=== PATIENT | female | born 1930 | race African-American/Black ===

== ENCOUNTER 2016-12-30 16:05 | Observation (INO) ==
[2016-12-30] MEDS ORDERED: ALPRAZolam 0.5 MG TABLET PO ONE (16:24)
[2016-12-30 16:59] LABS: Basophils # 0.1 K/mcL (0.0-0.2); Basophils % 0.5 %; Eosinophils # 0.2 K/mcL (0.0-0.6); Eosinophils % 1.3 %; Hematocrit 36.9 % (35.3-44.9); Hemoglobin 12.4 g/dL (11.5-15.4); Immature Granulocytes % 0.5 % (0-4); Lymphocytes # 1.5 K/mcL (0.6-4.6); Lymphocytes % 11.4 %; Mean Corpuscular HGB Conc 33.6 g/dL (31.6-35.5); Mean Corpuscular Hemoglobin 32.3 pg (28.0-33.3); Mean Corpuscular Volume 96.1 fL (83.0-100.0); Mean Platelet Volume 11.2 fL (9.4-12.4); Monocytes % 7.5 %; Neutrophils # 10.2 K/mcL (1.6-8.9); Platelet Count 186 K/mcL (140-400); Red Blood Count 3.84 M/mcL (3.82-4.97); Red Cell Distribution Width 12.3 % (11.5-14.5); Segmented Neutrophils % 78.8 %
[2016-12-30 17:11] LABS: BUN/Creatinine Ratio 19 (6-26); Blood Urea Nitrogen 24 mg/dL (7-20); Carbon Dioxide 28 mEq/L (19-29); Chloride 103 mEq/L (98-109); Ethanol < 10 mg/dL (0-10); Glucose 133 mg/dL (70-99); Osmolality,Calculated 298 (280-300); Potassium 3.7 mEq/L (3.5-4.5); Sodium 141 mEq/L (136-145); eGFR For African Americans 48 (> 60); eGFR For Non-African Americans 40 (> 60)
[2016-12-30 17:17] LABS: Bilirubin,Urine Negative (Negative); Blood,Urine Negative (Negative); Clarity,Urine Clear (Clear); Color,Urine Yellow (Yellow); Glucose,Urine (UA) Normal (Normal); Ketones,Urine Negative (Negative); Leukocyte Esterase,Urine Trace (Negative); Nitrite,Urine Negative (Negative); PH,Urine 6.5 pH Units (5.0-8.0); Protein,Urine Negative (Neg-Trace); Specific Gravity,Urine 1.013 (1.010-1.025); Urobilinogen,Urine Normal (Normal)
[2016-12-30 17:18] LABS: Prothrombin Time 10.8 Seconds (9.4-12.1)
[2016-12-30 17:21] LABS: Activated Partial Thrombo Time 34.3 Seconds (26.0-36.0)
[2016-12-30 17:24] LABS: Amphetamine Screen,Urine Negative ng/mL (Cutoff=1000); Barbiturate Screen,Urine Negative ng/mL (Cutoff=200); Benzodiazepines Screen,Urine Positive ng/mL (Cutoff=200); Cannabinoid Screen,Urine Negative ng/mL (Cutoff = 50); Cocaine Screen,Urine Negative ng/mL (Cutoff= 300); Opiate Screen,Urine Negative ng/mL (Cutoff=300); Phencyclidine Screen,Urine Negative ng/mL (Cutoff=25)
[2016-12-30 17:36] LABS: Bacteria,Urine None Seen per hpf (None-Few); Hyaline Casts,Urine None Seen per lpf (None-Few); RBC,Urine 0-3 per hpf (0-3); Squamous Epithelial Cell,Urine None Seen per lpf (None-Few); WBC,Urine 0-3 per hpf (0-3)
--- NOTE | 2016-12-30 20:06 | Emergency Department Note ---
Disposition Clinical Impression: CVA (cerebral vascular accident) Qualifiers: CVA mechanism: unspecified Qualified Code(s): I63.9 - Cerebral infarction, unspecified Disposition: Admitted As Inpatient Condition: Critical General Adult HPI - General Chief complaint: ED Neuro Symptoms/Deficit Stated complaint: chest pain Time Seen by Provider: 12/30/16 16:23 Source: family Limitations: altered mental status, physical limitation, age Nursing Notes Reviewed: Yes Vital Signs Reviewed: Yes - History of Present Illness HPI Narrative: 86-year-old female who presents with concern for dysarthria. She has been feeling somewhat off. 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 She admits that she did take Xanax today however was not feeling right. She cannot articulate exactly what was not right however she did present with dysarthria. INH score is 1 on arrival. Her onset of symptoms was outside the window for TPA administration. She was on our 10 on arrival. She had no weakness of her upper extremities or lower extremity. She had isolated dysarthria. She admits to no dysphagia. She does admit to some chest pain. She cannot articulate the exact nature of her chest pain. Pain Scale: 0 - Related Data Home Medications Medication Instructions Recorded Confirmed Aspirin 81 mg PO DAILY 05/22/15 03/06/16 Alprazolam [Xanax 0.5 MG Tablet] 0.5 mg PO TID 06/06/15 03/06/16 Calcium Carbonate/Vitamin D3 1 each PO BID 06/06/15 03/06/16 [Calcium 500 + D Tablet] Citalopram Hydrobromide 10 mg PO HS 06/06/15 03/06/16 [Citalopram HBr] Hydroxyzine HCl 25 mg PO BID 06/06/15 03/06/16 Multivit-Min/FA/Lycopen/Lutein 1 each PO HS 06/06/15 03/06/16 [Centrum Silver Tablet] Potassium Chloride [Klor-Con 10 meq PO BID 06/06/15 03/06/16 Sprinkle] Hydrochlorothiazide 25 mg PO DAILY 03/06/16 03/06/16 Losartan [Cozaar] 25 mg PO BID 03/06/16 03/06/16 Metoprolol [Lopressor] 50 mg PO BID 03/06/16 03/06/16 Lantus 12/30/16 Allergies Allergy/AdvReac Type Severity Reaction Status Date / Time Iodinated Contrast Media - Allergy Hives Verified 05/22/15 16:56 Oral and [Iodinated Contrast Media - IV Dye] All systems ED: reviewed and negative except as stated. Past Medical History - Past Medical History Medical history: Reports: non-contributory Surgical history: Reports: breast surgery, knee replacement Psychiatric history: Reports: anxiety VIRTUAL RECRUITER history: Reports: no VIRTUAL RECRUITER history - Social History Smoking Status: Never smoker Smokeless Tobacco Status: No Alcohol use: Reports: none Drug use: Reports: none Physical Exam Pupils are equal, round, reactive to light Tongue movement is normal She is able to raise her eyebrows symmetrically, puff out her cheeks symmetrically Mucous membranes are moist uvula is midline Trachea is midline Shoulder shrug is symmetrical Cardiovascular exam shows regular rate and rhythm Pulmonary exams without rales, rhonchi, wheezing Abdomen is soft and nontender Strength is May 10 in all extremities 5/5, sensation normal, reflexes checked and normal, she does have dysarthria only on examination Skin is pink warm and dry Affect is normal slightly anxious - General Limitations: altered mental status, physical limitation, age General appearance: anxious, lethargic Course Vital Signs Temperature 98.2 F 12/30/16 16:12 Pulse Rate 69 12/30/16 16:12 Respiratory Rate 16 12/30/16 16:12 Blood Pressure 170/76 12/30/16 16:12 O2 Sat by Pulse Oximetry 98 12/30/16 16:12 Temperature 98.2 F 12/30/16 16:12 Pulse Rate 75 12/30/16 18:00 Respiratory Rate 16 12/30/16 18:00 Blood Pressure 156/77 12/30/16 18:00 O2 Sat by Pulse Oximetry 99 12/30/16 18:00 Oxygen Delivery Oxygen Delivery Room Air Medical Decision Making - MDM Narrative Medical decision making narrative: 86-year-old female presents with strokelike symptoms. She did have dysarthria but she was outside the window for TPA. Noncontrast CT of the brain was obtained as she does have a decreased globular filtration rate and I do not want exposure to contrast load at this time. I would admit for MRI, CVA rule out. I do suspect there is a component of Xanax withdrawal as she does provide a history of having reduction in her Xanax dosing there was substantial S and she was on previously. She is very concerned about this. I did provide her a dose of her home Xanax and she did have some improvement of dysarthria. Given her age, comorbidities and be hard to exclude CVA and not she will be admitted for CVA rule out. bus monitor checked and normal. Urinalysis shows no evidence of infection. She is admitted in stable condition. - Medical Records Medical records reviewed: Yes I reviewed the patient's medical records. - Lab Data Lab results reviewed: Yes I reviewed the patient's lab results. Result diagrams: 12/30/16 16:51 12/30/16 16:51 Lab Results 12/30/16 12/30/16 12/30/16 Range/Units 16:17 16:51 16:51 WBC 13.0 H (4.3-11.1) K/mcL RBC 3.84 (3.82-4.97) M/mcL Hgb 12.4 (11.5-15.4) g/dL Hct 36.9 (35.3-44.9) % MCV 96.1 (83.0-100.0) fL MCH 32.3 (28.0-33.3) pg MCHC 33.6 (31.6-35.5) g/dL RDW 12.3 (11.5-14.5) % Plt Count 186 (140-400) K/mcL MPV 11.2 (9.4-12.4) fL Immature Gran % 0.5 (0-4) % Seg Neutrophils % 78.8 % Lymphocytes % 11.4 % Monocytes % 7.5 % Eosinophils % 1.3 % Basophils % 0.5 % Neutrophils # 10.2 H (1.6-8.9) K/mcL Lymphocytes # 1.5 (0.6-4.6) K/mcL Monocytes # 1.0 (0.0-1.3) K/mcL Eosinophils # 0.2 (0.0-0.6) K/mcL Basophils # 0.1 (0.0-0.2) K/mcL PT (9.4-12.1) Seconds INR APTT (26.0-36.0) Seconds Sodium 141 (136-145) mEq/L Potassium 3.7 (3.5-4.5) mEq/L Chloride 103 (98-109) mEq/L Carbon Dioxide 28 (19-29) mEq/L BUN 24 H (7-20) mg/dL Creatinine 1.28 H (0.57-1.11) mg/dL Est GFR ( Amer) 48 L (> 60) Est GFR (Non-Af Amer) 40 L (> 60) BUN/Creatinine Ratio 19 (6-26) Glucose 133 H (70-99) mg/dL POC Glucose 117 H (58-89) Calculated Osmolality 298 (280-300) Calcium 10.0 (8.6-10.8) mg/dL Troponin I (0-0.03) ng/mL Urine Color (Yellow) Urine Clarity (Clear) Urine pH (5.0-8.0) pH Units Ur Specific [place] (1.010-1.025) Urine Protein (Neg-Trace) mg/dL Urine Glucose (UA) (Normal) mg/dL Urine Ketones (Negative) mg/dL Urine Blood (Negative) Urine Nitrite (Negative) Urine Bilirubin (Negative) Urine Urobilinogen (Normal) mg/dL Ur Leukocyte Esterase (Negative) Urine Microscopic RBC (0-3) per hpf Urine Microscopic WBC (0-3) per hpf Ur Squamous Epith Cells (None-Few) per lpf Urine Bacteria (None-Few) per hpf Hyaline Casts (None-Few) per lpf Ur Culture Indicated? (NO) Urine Opiates Screen (Ibhtpa=511) ng/mL Ur Barbiturates Screen (Cjddts=333) ng/mL Ur Phencyclidine Scrn (Cutoff=25) ng/mL Ur Amphetamines Screen (Xsecru=1116) ng/mL U Benzodiazepines Scrn (Rydbwt=205) ng/mL Urine Cocaine Screen (Cutoff= 300) ng/mL U Marijuana (THC) Screen (Cutoff = 50) ng/mL Ethyl Alcohol < 10 (0-10) mg/dL Specimen Rejected 12/30/16 12/30/16 12/30/16 Range/Units 16:51 16:51 17:04 WBC (4.3-11.1) K/mcL RBC (3.82-4.97) M/mcL Hgb (11.5-15.4) g/dL Hct (35.3-44.9) % MCV (83.0-100.0) fL MCH (28.0-33.3) pg MCHC (31.6-35.5) g/dL RDW (11.5-14.5) % Plt Count (140-400) K/mcL MPV (9.4-12.4) fL Immature Gran % (0-4) % Seg Neutrophils % % Lymphocytes % % Monocytes % % Eosinophils % % Basophils % % Neutrophils # (1.6-8.9) K/mcL Lymphocytes # (0.6-4.6) K/mcL Monocytes # (0.0-1.3) K/mcL Eosinophils # (0.0-0.6) K/mcL Basophils # (0.0-0.2) K/mcL PT (9.4-12.1) Seconds INR APTT (26.0-36.0) Seconds Sodium (136-145) mEq/L Potassium (3.5-4.5) mEq/L Chloride (98-109) mEq/L Carbon Dioxide (19-29) mEq/L BUN (7-20) mg/dL Creatinine (0.57-1.11) mg/dL Est GFR ( Amer) (> 60) Est GFR (Non-Af Amer) (> 60) BUN/Creatinine Ratio (6-26) Glucose (70-99) mg/dL POC Glucose (58-89) Calculated Osmolality (280-300) Calcium (8.6-10.8) mg/dL Troponin I 0.00 (0-0.03) ng/mL Urine Color Yellow (Yellow) Urine Clarity Clear (Clear) Urine pH 6.5 (5.0-8.0) pH Units Ur Specific [place] 1.013 (1.010-1.025) Urine Protein Negative (Neg-Trace) mg/dL Urine Glucose (UA) Normal (Normal) mg/dL Urine Ketones Negative (Negative) mg/dL Urine Blood Negative (Negative) Urine Nitrite Negative (Negative) Urine Bilirubin Negative (Negative) Urine Urobilinogen Normal (Normal) mg/dL Ur Leukocyte Esterase Trace H (Negative) Urine Microscopic RBC 0-3 (0-3) per hpf Urine Microscopic WBC 0-3 (0-3) per hpf Ur Squamous Epith Cells None Seen (None-Few) per lpf Urine Bacteria None Seen (None-Few) per hpf Hyaline Casts None Seen (None-Few) per lpf Ur Culture Indicated? YES A (NO) Urine Opiates Screen (Yufyhw=356) ng/mL Ur Barbiturates Screen (Aaplwu=118) ng/mL Ur Phencyclidine Scrn (Cutoff=25) ng/mL Ur Amphetamines Screen (Huxohd=3750) ng/mL U Benzodiazepines Scrn (Tvyylr=377) ng/mL Urine Cocaine Screen (Cutoff= 300) ng/mL U Marijuana (THC) Screen (Cutoff = 50) ng/mL Ethyl Alcohol (0-10) mg/dL Specimen Rejected Volume 12/30/16 12/30/16 Range/Units 17:04 17:08 WBC (4.3-11.1) K/mcL RBC (3.82-4.97) M/mcL Hgb (11.5-15.4) g/dL Hct (35.3-44.9) % MCV (83.0-100.0) fL MCH (28.0-33.3) pg MCHC (31.6-35.5) g/dL RDW (11.5-14.5) % Plt Count (140-400) K/mcL MPV (9.4-12.4) fL Immature Gran % (0-4) % Seg Neutrophils % % Lymphocytes % % Monocytes % % Eosinophils % % Basophils % % Neutrophils # (1.6-8.9) K/mcL Lymphocytes # (0.6-4.6) K/mcL Monocytes # (0.0-1.3) K/mcL Eosinophils # (0.0-0.6) K/mcL Basophils # (0.0-0.2) K/mcL PT 10.8 (9.4-12.1) Seconds INR 1.0 APTT 34.3 (26.0-36.0) Seconds Sodium (136-145) mEq/L Potassium (3.5-4.5) mEq/L Chloride (98-109) mEq/L Carbon Dioxide (19-29) mEq/L BUN (7-20) mg/dL Creatinine (0.57-1.11) mg/dL Est GFR ( Amer) (> 60) Est GFR (Non-Af Amer) (> 60) BUN/Creatinine Ratio (6-26) Glucose (70-99) mg/dL POC Glucose (58-89) Calculated Osmolality (280-300) Calcium (8.6-10.8) mg/dL Troponin I (0-0.03) ng/mL Urine Color (Yellow) Urine Clarity (Clear) Urine pH (5.0-8.0) pH Units Ur Specific [place] (1.010-1.025) Urine Protein (Neg-Trace) mg/dL Urine Glucose (UA) (Normal) mg/dL Urine Ketones (Negative) mg/dL Urine Blood (Negative) Urine Nitrite (Negative) Urine Bilirubin (Negative) Urine Urobilinogen (Normal) mg/dL Ur Leukocyte Esterase (Negative) Urine Microscopic RBC (0-3) per hpf Urine Microscopic WBC (0-3) per hpf Ur Squamous Epith Cells (None-Few) per lpf Urine Bacteria (None-Few) per hpf Hyaline Casts (None-Few) per lpf Ur Culture Indicated? (NO) Urine Opiates Screen Negative (Gagexi=974) ng/mL Ur Barbiturates Screen Negative (Rptaoz=918) ng/mL Ur Phencyclidine Scrn Negative (Cutoff=25) ng/mL Ur Amphetamines Screen Negative (Zfzqzp=9406) ng/mL U Benzodiazepines Scrn Positive H (Cingkv=700) ng/mL Urine Cocaine Screen Negative (Cutoff= 300) ng/mL U Marijuana (THC) Screen Negative (Cutoff = 50) ng/mL Ethyl Alcohol (0-10) mg/dL Specimen Rejected - Radiology Data Radiology results reviewed: Yes I reviewed the patient's radiology results. - EKG Data EKG #1 EKG results narrative: EKG shows normal sinus rhythm, normal axis, normal intervals, nonspecific ST segment changes nonspecific ECG Critical Care Time Total Critical Care Time: 31 Attestation: Assessment the total of 31 minutes resuscitating this acutely ill female patient suffering from possible cerebrovascular accident. Resuscitation time was excluding billable procedures. She was admitted and remains in critical condition with a high potential for life-threatening deterioration
[2016-12-30] MEDS ORDERED: Naloxone 0.4 MG/ML INJ IVP PRN (21:55)
--- NOTE | 2016-12-30 21:55 | Internal Med History&Physical ---
Date of Encounter: 12/30/16 Time of Encounter: 21:30 Assessment and Plan (1) Slurred speech Current visit: Yes Status: Acute pt reports some slurring of speech for about a week and is reportedly happens when she talks for some time. No other associated neurological signs. Will request MRI brain to exclude CVA. Other differential is Myasthenia. Will consult speech therapy and consider neurology consultation. (2) Dizziness Current visit: Yes Status: Acute Suspect orthostatic hypotension. Will check orthostatic vitals and treat her with intravenous fluids. (3) Generalized weakness Current visit: Yes Status: Acute Possibly secondary to volume depletion/suspected urinary tract infection (4) UTI (urinary tract infection) Current visit: Yes Status: Acute Empirically start on ceftriaxone. Urine culture is pending. 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 Monitor BP Qualifiers: Hypertension type: essential hypertension Qualified Code(s): I10 - Essential (primary) hypertension (7) Anxiety Current visit: Yes Status: Chronic Continue Xanax at home dose (8) CKD (chronic kidney disease) stage 3, GFR 30-59 ml/min Current visit: Yes Status: Chronic Monitor renal function Internal Medicine - H&P: HPI Chief complaint: Generalized weakness Admitted From: Emergency Dept Plans for Post Hospital Care: Transfer [facility] History of present illness: Ms. Phillips is a 86 year old female with Past medical history significant for peripheral vascular disease, ulcerative colitis, GERD, diabetes mellitus, hypertension, pericardial effusion, diverticulosis, hyperlipidemia and anxiety. She is a resident of assisted living and uses quad cane to assist in walking. She presents to the emergency department with generalized weakness, dizziness and lightheadedness when she stands up. No history of falls or loss of consciousness. She denies headache or blurred vision. She reportedly had some slurred speech, which the patient indicates is going on for about a week and happens when she is talking for some time. She denies difficulty swallowing and cough with swallowing. She denies localized weakness of the extremities. She denies chest pain, shortness of breath, cough, expectoration, fever, chills today. She reports some generalized abdominal pain, but more in the suprapubic area. She denies significant dysuria or hematuria. No new bowel changes. She was evaluated in the emergency department and there was concern for dyarthria she is admitted to the hospitalist service for further w/u and management. Of note: she indicates that she was on Xanax for many years but been off her Xanax for a few weeks but restarted on Xanax at a lower dose earlier this month. Past Med Surg Social Fam HX - Past Medical History Medical history: non-contributory Psychiatric history: anxiety - Past Surgical History Surgical History: breast surgery, knee replacement - Social History Smoking Status: Never smoker Smokeless Tobacco Status: No Alcohol use: none Drug use: none - Family History Mother Living Status: Father Daughter Living Status: Internal Medicine - H&P: Meds Aspirin 81 mg PO DAILY 05/22/15 [History] Alprazolam [Xanax 0.5 MG Tablet] 0.5 mg PO QID 06/06/15 [History] Calcium Carbonate/Vitamin D3 [Calcium 500 + D Tablet] 1 each PO BID 06/06/15 [ History] Citalopram Hydrobromide [Citalopram HBr] 20 mg PO HS 06/06/15 [History] Hydroxyzine HCl 25 mg PO BID PRN 06/06/15 [History] Multivit-Min/FA/Lycopen/Lutein [Centrum Silver Tablet] 1 each PO DAILY 06/06/15 [History] Potassium Chloride [Klor-Con Sprinkle] 5 meq PO BID 06/06/15 [History] Hydrochlorothiazide 25 mg PO DAILY 03/06/16 [History] Losartan [Cozaar] 50 mg PO BID 03/06/16 [History] Metoprolol [Lopressor] 50 mg PO BID 03/06/16 [History] Insulin Glargine,Hum.rec.anlog [Lantus Solostar] 8 unit SQ DAILY 12/30/16 [ History] Allergies Iodinated Contrast Media - Oral and [Iodinated Contrast Media - IV Dye] Allergy (Verified 05/22/15 16:56) Hives All Systems PM: A 10-system review of systems was performed and is negative for pertinent findings except as documented above in the HPI. - Constitutional Vitals: Temp Pulse Resp BP Pulse Ox 97.9 F 73 16 170/88 98 12/30/16 21:18 12/30/16 21:18 12/30/16 21:18 12/30/16 21:18 12/30/16 21:18 Exam: General: Not in acute distress at the time of my evaluation HEENT: Oral mucosa is moist. No conjunctival palor or scleral icterus Neck: No obvious neck swellings Lungs: Clear to auscultation Cardiac: Regular rate and rhythm. No significant murmurs Abdomen: suprapubic tenderness. Bowel sounds present Genitourinary: No capellan catheter Neurological: Alert and oriented. No gross localizing deficits. No gross cranial nerve deficits noted Psych: Not aggressive or agitated Extremities: no significant leg edema Skin: No generalized rash Internal Med - H&P Results - Labs CBC & Chem 7: 12/30/16 16:51 12/30/16 16:51 - EKG Data -: EKG Interpreted by Myself EKG shows normal: sinus rhythm Rate: normal - Impressions ITS Impressions Head CT 12/30/16 16:24 IMPRESSION: No acute intracranial abnormality. D/ / Scooter Rivera MD / Scooter Rivera MD Interpreting Provider: Scooter Rivera MD
[2016-12-30] MEDS ORDERED: hydrOXYzine pamoate 25 MG CAPSULE PO PRN (22:54)
[2016-12-30] MEDS ORDERED: D5% in Water 1,000 ML IVC PRN (23:27)
[2016-12-30] MEDS ORDERED: *HR* Dextrose 50 % in Water (Syg) 50 ML SYRINGE IVP PRN (23:27)
[2016-12-30] MEDS ORDERED: Dextrose Gel 15 GM PO PRN ×2 (23:27)
[2016-12-31] MEDS: 0.9 % Sodium Chloride 1,000 ML IVC SCH ×2 (00:18→12:34)
[2016-12-31] MEDS: ALPRAZolam 0.5 MG TABLET PO SCH ×5 (00:19→21:55)
[2016-12-31 04:31] LABS: Basophils % 0.4 %; Eosinophils # 0.2 K/mcL (0.0-0.6); Eosinophils % 2.1 %; Hematocrit 33.9 % (35.3-44.9); Immature Granulocytes % 0.4 % (0-4); Lymphocytes # 1.7 K/mcL (0.6-4.6); Lymphocytes % 18.8 %; Mean Corpuscular HGB Conc 32.4 g/dL (31.6-35.5); Mean Corpuscular Hemoglobin 31.4 pg (28.0-33.3); Mean Corpuscular Volume 96.9 fL (83.0-100.0); Mean Platelet Volume 11.3 fL (9.4-12.4); Monocytes # 0.8 K/mcL (0.0-1.3); Monocytes % 8.9 %; Neutrophils # 6.3 K/mcL (1.6-8.9); Platelet Count 158 K/mcL (140-400); Red Cell Distribution Width 12.5 % (11.5-14.5); Segmented Neutrophils % 69.4 %
[2016-12-31 04:44] LABS: Potassium 3.5 mEq/L (3.5-4.5)
[2016-12-31 04:53] LABS: Chol/HDL Ratio 3.6 (0-4.9); Magnesium 1.6 mg/dL (1.6-2.6)
[2016-12-31] MEDS: *HR* Heparin 5,000 UNIT/ML VIAL SQ SCH ×3 (06:16→21:56)
[2016-12-31] MEDS: Insulin LISPRO 300 UNITS/3 ML VIAL SQ SCH ×3 (07:56→16:50)
[2016-12-31] MEDS: Multivit/Ca/Min/Fe/FA 1 TAB TABLET PO SCH (08:01)
[2016-12-31] MEDS: Aspirin 81 MG TAB.CHEW PO SCH (08:01)
[2016-12-31] MEDS: Lactobacillus 1 EACH CAP.SPRINK PO SCH ×2 (08:01→21:54)
[2016-12-31] MEDS: Calcium 500-Vit D3 PO SCH ×2 (08:02→21:56)
--- NOTE | 2016-12-31 11:17 | Internal Med Progress Note ---
Date of Encounter: 12/31/16 Time of Encounter: 10:15 - Assessment and plan (1) Dysphagia Current Visit: Yes Status: Acute Assessment and plan: Patient is stating for the past several months that her food is been getting stuck in the middle of her chest. She denies any vomiting. She denies coughing while eating. In review of her chart, she had an EGD on 03/06/16 revealed gastritis and a small hiatal hernia with no evidence of esophageal strictures. She is still able to tolerate a regular diet, recommend follow-up outpatient for an outpatient EGD as indicated. No inpatient consultation warranted at this time. Speech therapy has also been brought on board. (2) Slurred speech Current Visit: Yes Status: Resolved Assessment and plan: Speech fluid. Brain MRI pending. (3) Dizziness Current Visit: Yes Status: Acute Assessment and plan: Still dizzy with ambulation, orthostatic vital signs unremarkable. Awaiting brain MRI. No focal neurological weakness is present on examination. (4) Generalized weakness Current Visit: Yes Status: Acute Assessment and plan: No focal neurological weakness is present on examination. We will bring OT and PT on board. She is currently independent living at the [facility]. (5) Diabetes Current Visit: Yes Status: Chronic Assessment and plan: Controlled. A1c 5.9% earlier this month. Continue sliding scale while admitted. (6) HTN (hypertension) Current Visit: Yes Status: Chronic Assessment and plan: Slightly hypertensive upon arrival, trending down towards normotension. Takes Lopressor 50 mg twice a day, losartan 50 mg twice a day, HCTZ 25 mg daily. HCTZ held and continued at this time as her renal functioning is consistent with her baseline, we will continue to trend and adjust medications as indicated. Qualifiers: Hypertension type: essential hypertension Qualified Code(s): I10 - Essential (primary) hypertension (7) COPD (chronic obstructive pulmonary disease) Current Visit: No Status: Chronic Assessment and plan: No acute exacerbation. Patient denies shortness of breath above her norm. (8) UTI (urinary tract infection) Current Visit: Yes Status: Acute Assessment and plan: suspected. Continue ceftriaxone, culture pending Qualifiers: Urinary tract infection type: site unspecified Hematuria presence: without hematuria Qualified Code(s): N39.0 - Urinary tract infection, site not specified (9) CKD (chronic kidney disease) stage 3, GFR 30-59 ml/min Current Visit: Yes Status: Chronic Assessment and plan: Stable and consistent with her baseline, we will continue to trend (10) Anxiety Current Visit: Yes Status: Chronic Assessment and plan: Patient is staining her regular psychiatrist was unable to see her due to leaving his practice and states that the new prescriber would not refill her Xanax. She does have her Xanax refilled at this time and states her anxiety is better controlled now. - Subjective Interval history: Patient seen and examined. On examination, patient is sitting upright in bed. Patient complains of left knee pain and also states that whenever she eats, food gets stuck. She denies any vomiting. She states she was able to ambulate to the bathroom but still felt dizzy and lightheaded. She states she is unable to eat a regular diet. - Constitutional Vitals: Temp Pulse Resp BP Pulse Ox 97.8 F 82 15 158/82 95 12/31/16 07:57 12/31/16 07:57 12/31/16 07:57 12/31/16 07:57 12/31/16 08:00 General appearance: Present: A&O X 3, pleasant, no acute distress, answers questions appropriately - Head Head exam: Present: atraumatic, normocephalic - Eye Eye exam: Present: PERRL, conjuntiva pink, sclera anicteric Pupils: Present: PERRL - Neck Neck exam general surgery: Present: supple, trachea midline. Absent: lymphadenopathy - Respiratory Respiratory exam: Present: CTAB. Absent: accessory muscle use, rales, respiratory distress, rhonchi, wheezes - Cardiovascular Cardiovascular exam: Present: RRR, +S1, +S2. Absent: diastolic murmur, gallop, rubs, systolic murmur - GI/Abdominal GI/Abdominal exam: Present: normal bowel sounds, soft, no peritoneal signs. Absent: distended, tenderness - Extremities Exam Extremities exam: Present: warm, radial pulses palpable and symetrical. Absent : calf tenderness, cyanotic, pedal edema - Neurological Exam Neurological exam: Present: alert, CN II-XII intact, oriented X3, no focal deficits, strengths equal and symetr throughout. Absent: pronater drift, facial droop, speech deficit - Skin Skin exam: Present: dry, intact, pallor, warm Internal Medicine: Result - Labs CBC & Chem 7: 12/31/16 03:50 12/31/16 03:50 Labs: Short CBC 12/31/16 Range/Units 03:50 WBC 9.1 (4.3-11.1) K/mcL Hgb 11.0 L (11.5-15.4) g/dL Hct 33.9 L (35.3-44.9) % Plt Count 158 (140-400) K/mcL Neutrophils # 6.3 (1.6-8.9) K/mcL BMP 12/31/16 03:50 Sodium 139 Potassium 3.5 Chloride 102 Carbon Dioxide 30 H BUN 23 H Creatinine 1.20 H Glucose 149 H Calcium 9.0 - ABG Interpretation ABG results: PT/INR, D-dimer PT 10.8 Seconds (9.4-12.1) 12/30/16 17:08 - Impressions Impressions Chest X-Ray 12/31/16 04:00 IMPRESSION: 1. No active pulmonary disease. 2. Stable cardiomegaly without overt failure. D/ / Bo Weinstein MD / Bo Weinstein MD Interpreting Provider: Bo Weinstein MD Consult Discharge Plan - Plan Referrals: Luis Vargas DO [Primary Care Provider] - 01/07/17 10:00 am
[2016-12-31] MEDS: hydroCHLOROthiazide 25 MG TABLET PO SCH (12:27)
[2016-12-31] MEDS ORDERED: Insulin LISPRO 300 UNITS/3 ML VIAL SQ SCH (21:00)
[2017-01-01] MEDS: 0.9 % Sodium Chloride 1,000 ML IVC SCH (04:09)
[2017-01-01] MEDS: *HR* Heparin 5,000 UNIT/ML VIAL SQ SCH ×2 (04:42→14:24)
[2017-01-01 04:53] LABS: Basophils # 0.1 K/mcL (0.0-0.2); Basophils % 0.6 %; Eosinophils # 0.2 K/mcL (0.0-0.6); Eosinophils % 2.7 %; Hematocrit 35.3 % (35.3-44.9); Hemoglobin 11.5 g/dL (11.5-15.4); Immature Granulocytes % 0.4 % (0-4); Lymphocytes # 1.8 K/mcL (0.6-4.6); Lymphocytes % 22.6 %; Mean Corpuscular HGB Conc 32.6 g/dL (31.6-35.5); Mean Corpuscular Volume 98.3 fL (83.0-100.0); Mean Platelet Volume 11.9 fL (9.4-12.4); Monocytes # 0.8 K/mcL (0.0-1.3); Monocytes % 9.8 %; Neutrophils # 4.9 K/mcL (1.6-8.9); Platelet Count 149 K/mcL (140-400); Red Blood Count 3.59 M/mcL (3.82-4.97); Red Cell Distribution Width 12.4 % (11.5-14.5); Segmented Neutrophils % 63.9 %
[2017-01-01 05:29] LABS: BUN/Creatinine Ratio 21 (6-26); Blood Urea Nitrogen 19 mg/dL (7-20); Carbon Dioxide 28 mEq/L (19-29); Chloride 105 mEq/L (98-109); Glucose 126 mg/dL (70-99); Osmolality,Calculated 296 (280-300); Potassium 3.6 mEq/L (3.5-4.5); Sodium 141 mEq/L (136-145); eGFR For African Americans > 60 (> 60); eGFR For Non-African Americans 58 (> 60)
[2017-01-01] MEDS: Insulin LISPRO 300 UNITS/3 ML VIAL SQ SCH ×2 (08:09→14:15)
--- NOTE | 2017-01-01 08:17 | Electrocardiograph Report ---
[place] [id number] Test Date: 2016-12-30 Pat Name: Layne Phillips Department: 103 Room: 3B21 Gender: F Shaft Tender: [facility] : 1930 Requested By: Bianca Gallegos Order Number: [id number] Reading MD: Baldomero Andino MD Measurements Intervals [place] Rate: 66 P: 56 [place]: 135 QRS: -4 QRSD: 106 T: 18 QT: 398 QTc: 411 Interpretive Statements SINUS RHYTHM Electronically Signed On 01-01-2017 8:16:08 EDT by Baldomero Andino MD
[2017-01-01] MEDS: Lactobacillus 1 EACH CAP.SPRINK PO SCH (08:45)
[2017-01-01] MEDS: ALPRAZolam 0.5 MG TABLET PO SCH ×2 (08:45→14:24)
[2017-01-01] MEDS: Calcium 500-Vit D3 PO SCH (08:46)
[2017-01-01] MEDS: Aspirin 81 MG TAB.CHEW PO SCH (08:46)
[2017-01-01] MEDS: hydroCHLOROthiazide 25 MG TABLET PO SCH (08:46)
[2017-01-01] MEDS: Multivit/Ca/Min/Fe/FA 1 TAB TABLET PO SCH (08:46)
[2017-01-01 11:29] VITALS: BP 160/80
--- NOTE | 2017-01-01 15:00 | Discharge Summary ---
Date of Encounter: 01/01/17 Time of Encounter: 09:40 - Discharge Diagnosis (1) Generalized weakness Priority: Primary Status: Resolved Comments: Patient has been ambulating in room today. She denies feeling weak or dizzy today. Upper and lower motor extremity strength moderate and equal. Patient has steady gait with assistance from her walker. She had physical therapy and occupational therapy assess her in the hospital, she says she does not want occupational therapy at home due to cost. She lives in independent living on [facility]. she says she feels like she is back to normal and can go home and care for herself without problems. (2) Slurred speech Priority: Secondary Status: Resolved Comments: Patient states that her speech has returned to normal. Speech is clear and easy to understand. Her MRI was negative for acute infarct. Her head CT was negative for any intracranial abnormality. Patient will follow up with primary care physician for recheck. (3) Dizziness Priority: Secondary Status: Acute Comments: Patient denies dizziness today. She has been up ambulating around her room without difficulty. She will continue home medications. Her head CT and MRI were both negative for intracranial abnormalities or infarct. She appears to be euvolemic mucous membranes moist, she has no peripheral edema lungs are clear. (4) HTN (hypertension) Priority: Secondary Status: Chronic Comments: Vital signs remained stable. Blood pressure within normal range for patient's age. This is chronic. She will continue home medications. Qualifiers: Hypertension type: essential hypertension Qualified Code(s): I10 - Essential (primary) hypertension (5) UTI (urinary tract infection) Priority: Secondary Status: Ruled-out Comments: Patient did receive IV Rocephin 1000 mg daily for suspected urinary tract infection, however, urine culture was negative for pathogens and there were no bacteria on the urinalysis. Patient states that she will follow-up with her primary care physician for repeat UA Qualifiers: Urinary tract infection type: site unspecified Hematuria presence: without hematuria Qualified Code(s): N39.0 - Urinary tract infection, site not specified (6) CKD (chronic kidney disease) stage 3, GFR 30-59 ml/min Priority: Secondary Status: Chronic Comments: Chronic. Renal function has returned within normal limits. She will continue to follow with her primary care physician. (7) Anxiety Priority: Secondary Status: Chronic Comments: Patient reports multiple changes to her Xanax dose over the last few weeks. This alone has caused her some anxiety and may somewhat have contributed to her dizziness. Patient denies anxiety and states that her dose is fine at this time and does not wish for her to be changed again. She will continue Xanax at home as she did previously. - Discharge Medications Home Medications: Aspirin 81 mg PO DAILY 05/22/15 [History] Alprazolam [Xanax 0.5 MG Tablet] 0.5 mg PO QID 06/06/15 [History] Calcium Carbonate/Vitamin D3 [Calcium 500-Vit D3 400 Tablet] 1 each PO BID 06/06 [History] Citalopram Hydrobromide [Citalopram HBr] 20 mg PO HS 06/06/15 [History] Hydroxyzine HCl 25 mg PO TID PRN 06/06/15 [History] Multivit-Min/FA/Lycopen/Lutein [Centrum Silver Tablet] 1 each PO DAILY 06/06/15 [History] Potassium Chloride [Klor-Con Sprinkle] 5 meq PO BID 06/06/15 [History] Hydrochlorothiazide 25 mg PO DAILY 03/06/16 [History] Losartan [Cozaar] 50 mg PO BID 03/06/16 [History] Metoprolol [Lopressor] 50 mg PO BID 03/06/16 [History] Insulin Glargine,Hum.rec.anlog [Lantus Solostar] 8 unit SQ DAILY 12/30/16 [ History] Pantoprazole Sodium [Protonix] 40 mg PO DAILY 12/31/16 [History] Allergies/Adverse Reactions: Allergies Iodinated Contrast Media - Oral and [Iodinated Contrast Media - IV Dye] Allergy (Verified 12/31/16 08:26) Hives Procedures/tests Complete & Pending: Procedures Performed prior 72 hours Category Date Time Status MR head/brain wo con [MR] Routine MRI 12/31/16 10:48 Completed ECG 12 lead ECG [ECG] Routine Y 12/30/16 Completed Date of admission: 12/30/16 19:36 Primary care physician: Luis Vargas DO Consults: 12/30/16 22:56 Consult to Speech Therapy [CONS] Routine Comment: Evaluate, develop and implement POC Reason for Consult: Slurred speech Call Completed: No 12/31/16 11:45 Consult to Occupational Therapy [CONS] Routine Comment: Evaluate, develop and implement POC Consult to Physical Therapy [CONS] Routine Comment: Evaluate, develop and implement POC Discharging clinician: Carina Turcios Anticipated date of discharge: 01/01/17 - Patient Status Disposition: Home, Self-Care Condition: Good Functional capacity at discharge: uses cane/walker Overall status at discharge: patient is progressing back to baseline - Discharge Instructions Follow Up With: Luis Vargas DO [Primary Care Provider] - 01/07/17 10:00 am Forms: ED Satisfaction Letter Additional Instructions: Please continue her normal home medications. Drink plenty of water daily. Follow-up with her primary care physician within the next week to 10 days. Return for any problems or concerns, or if you have any new or returning pain. - Diet and Activity Activity: ambulate only with your walker, resume usual activities as tolerated Diet: advance to your usual diet Hospital course: Ms. Phillips is a 86 year old female who was admitted on December 30 with generalized weakness dizziness and lightheadedness. Her past medical history significant for PVD, ulcerative colitis, GERD, diabetes, hypertension, diverticulosis, hyperlipidemia, and anxiety. She lives at the [facility] independent living uses a quad cane and a Rollator to walk around her apartment. Patient reports dizziness and weakness when attempting to stand over the last few days. She does not have any history of falls or loss of consciousness or syncope. She says that she has had slurred speech over the last few days which she states gets worse when she is talking for a long period of time. She denies unilateral weakness or facial droop or any numbness or tingling in her face or extremities. She denies chest pain or shortness of breath, recent cough , illness, or exposure to illness. Patient was admitted with slurred speech and weakness in both her head CT and head/ brain MRI were negative for acute infarct or intracranial abnormality. Chest x-ray was negative for any cardiac or pulmonary processes. She was treated for suspected urinary tract infection with Rocephin. Her urine culture was negative for pathogens. She denies any urinary symptoms, no CVA tenderness, no fever or leukocytosis, no hematuria, no flank pain, no confusion or headache. Patient was given IV fluids which most likely helped in rehydrating her and making her feel better. She has been ambulating around her room without difficulty today. She denies dizziness, nausea, vomiting, headache, weakness, chest pain. Her vitals have been within normal limits and her renal function has returned to levels within normal limits. She says that she has friends who will check on her and feels that she is stable to go home. - Time Spent with Patient Total time spent providing and/or coordinating discharge services: - Constitutional Vitals: Temp Pulse Resp BP Pulse Ox 98.1 F 65 16 160/80 97 01/01/17 11:28 01/01/17 11:28 01/01/17 11:28 01/01/17 11:28 01/01/17 11:28 General appearance: Present: cooperative, A&O X 3, pleasant, no acute distress, answers questions appropriately - Head Head exam: Present: normal inspection - Eye Eye exam: Present: normal appearance, conjuntiva pink - ENT ENT exam: Present: mucous membranes moist, normal exam, normal external ear exam - Neck Neck exam general surgery: Present: normal inspection. Absent: lymphadenopathy , tenderness - Respiratory Respiratory exam: Present: CTAB. Absent: chest wall tenderness, decreased breath sounds, respiratory distress, rhonchi, stridor, wheezes, tachypnea - Cardiovascular Cardiovascular exam: Present: RRR, +S1, +S2. Absent: diastolic murmur, systolic murmur - GI/Abdominal GI/Abdominal exam: Present: normal bowel sounds, soft. Absent: hepatomegaly, tenderness - Extremities Exam Extremities exam: Present: normal capillary refill, normal inspection, warm, radial pulses palpable and symetrical. Absent: cyanotic, mottling, tenderness
== END 2017-01-01 16:30 | disposition home or self-care (01) ==
LOC: 3BNU 16:05 → EMEROO 16:05 → 3BNU 21:06
PROVIDERS: ADMIT Internal Medicine; ATTEND Registered Nurse

== ENCOUNTER 2017-03-28 18:48 | Observation (INO) ==
[2017-03-28] MEDS ORDERED: Aspirin 325 MG TABLET PO ONE (20:25)
[2017-03-28] MEDS ORDERED: Nitroglycerin 0.4 MG TAB.SUBL SL ONE (20:27)
--- NOTE | 2017-03-28 20:27 | Emergency Department Note ---
Disposition Clinical Impression: Chest pain Qualifiers: Chest pain type: unspecified Qualified Code(s): R07.9 - Chest pain, unspecified Disposition: Admitted As Inpatient Condition: Fair Referrals: Luis Vargas DO [Primary Care Provider] - Forms: ED Satisfaction Letter Time of Disposition: 22:58 Chest Pain HPI - General Chief Complaint: ED Chest Pain Stated Complaint: Chest Pain, L shoulder pain Time Seen by Provider: 03/28/17 20:18 Source: patient Limitations: no limitations Vital Signs Reviewed: Yes Nursing Notes Reviewed: Yes - History of Present Illness HPI Narrative: Mrs. Phillips is an 86-year-old female with a history of hypertension, diabetes, hyperlipidemia, presents with approximately one week of chest pain, she states this is worse with exertion, as bad as 10 out of 10 currently an 8 out of 10, with radiation to her left arm. She describes the pain as crampy and achy almost a pressure or heaviness at times. Patient reports that she has a history of reflux and she did not come in earlier because she thought this might of been just her reflux. Patient denies previous workup for ischemia, does take 81 mg aspirin and take this today. Patient denies urinary complaints , weight changes fever chills, productive cough, she has had some left lower [place] swelling where she had previously a total knee replacement, she states that her left leg the anterior aspect of appears to be swollen. Pt complaint: chest pain Onset (ago): hour(s) Duration: intermittent Onset: during exertion Pain Location: left chest Severity: severe Severity scale (1-10): 10 Quality: aching Pain Radiation: LUE Improves with: nothing Worsens with: exertion Associated symptoms: Reports: nausea, dyspnea. Denies: vomiting, diaphoresis Treatments prior to arrival chest pain: aspirin - Related Data Home Medications Medication Instructions Recorded Confirmed Aspirin 81 mg PO DAILY 05/22/15 03/28/17 ALPRAZolam [Xanax 0.5 MG Tablet] 0.5 mg PO QID 06/06/15 03/28/17 Calcium Carbonate/Vitamin D3 1 each PO BID 06/06/15 03/28/17 [Calcium 500-Vit D3 400 Tablet] Citalopram Hydrobromide 20 mg PO HS 06/06/15 03/28/17 [Citalopram HBr] Multivit-Min/FA/Lycopen/Lutein 1 each PO DAILY 06/06/15 03/28/17 [Centrum Silver Tablet] Potassium Chloride [Klor-Con 5 meq PO BID 06/06/15 03/28/17 Sprinkle] hydrOXYzine HCl [Hydroxyzine HCl] 25 mg PO TID PRN 06/06/15 03/28/17 Losartan [Cozaar] 50 mg PO BID 03/06/16 03/28/17 Metoprolol [Lopressor] 75 mg PO BID 03/06/16 03/28/17 hydroCHLOROthiazide 25 mg PO DAILY 03/06/16 03/28/17 [Hydrochlorothiazide] Insulin Glargine,Hum.rec.anlog 4 unit SQ HS 12/30/16 03/28/17 [Lantus Solostar] Pantoprazole Sodium [Protonix] 40 mg PO DAILY 12/31/16 03/28/17 Allergies Allergy/AdvReac Type Severity Reaction Status Date / Time Iodinated Contrast- Oral and Allergy Hives Verified 12/31/16 08:26 IV Dye [Iodinated Contrast Media - IV Dye] All systems ED: reviewed and negative except as stated. Constitutional: Denies: fever, chills Cardiovascular: Reports: as per HPI, chest pain, dyspnea on exertion, edema (LLE ). 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 GI: normal inspection, Soft, NTND, BS presentred Back: normal inspection, no tenderness to palpation MSK: Incision to the left knee consistent with total knee replacement, mild anterior swelling no evidence of abscess, negative Homans sign bilaterally Neuro: A&O3, no gross motor or sensory deficits bilaterally Skin: No rashes, skin warm, dry, intact - General Limitations: no limitations General appearance: alert Course Course Narrative: 86-year-old female with a heart score of 6, presents with a week of intermittent chest pain with exertion, history of hypertension anemia, diabetes , plan likely admission we will get a chest pain workup, her initial EKG was unremarkable. Patient's in stable condition at this time we will try an aspirin nitroglycerin for pain - Reevaluation(s) Reevaluation #1: pt pain completely relieved with nitroglycerin, troponin negative, admitted to the hospital service in stable condition, [facility] accepting Time: 22:57 Vital Signs Temperature 98.2 F 03/28/17 18:50 Pulse Rate 68 03/28/17 18:50 Respiratory Rate 16 03/28/17 18:50 Blood Pressure 163/90 03/28/17 18:50 O2 Sat by Pulse Oximetry 98 03/28/17 18:50 Temperature 98.2 F 03/28/17 18:50 Pulse Rate 68 03/28/17 20:40 Respiratory Rate 18 03/28/17 20:40 Blood Pressure 176/90 03/28/17 20:40 O2 Sat by Pulse Oximetry 98 03/28/17 20:40 Oxygen Delivery Oxygen Delivery Room Air Chest Pain - MDM Narrative Medical decision making narrative: 86-year-old female with chest pain workup troponin EKG unremarkable, admitted to medicine service heart score of stable time of ED disposition - Differential Diagnosis Likely: atypical chest pain, st elevation myocardial infraction, chest pain - Medical Records Medical records reviewed: Yes I reviewed the patient's medical records. - Lab Data Lab results reviewed: Yes I reviewed the patient's lab results. Result diagrams: 03/28/17 21:45 03/28/17 21:45 Lab Results 03/28/17 03/28/17 03/28/17 Range/Units 21:45 21:45 21:45 WBC 8.9 (4.3-11.1) K/mcL RBC 4.04 (3.82-4.97) M/mcL Hgb 12.6 (11.5-15.4) g/dL Hct 37.4 (35.3-44.9) % MCV 92.6 (83.0-100.0) fL MCH 31.2 (28.0-33.3) pg MCHC 33.7 (31.6-35.5) g/dL RDW 12.0 (11.5-14.5) % Plt Count 189 (140-400) K/mcL MPV 10.9 (9.4-12.4) fL Immature Gran % 0.3 (0-4) % Seg Neutrophils % 63.8 % Lymphocytes % 24.3 % Monocytes % 9.1 % Eosinophils % 1.9 % Basophils % 0.6 % Neutrophils # 5.7 (1.6-8.9) K/mcL Lymphocytes # 2.2 (0.6-4.6) K/mcL Monocytes # 0.8 (0.0-1.3) K/mcL Eosinophils # 0.2 (0.0-0.6) K/mcL Basophils # 0.1 (0.0-0.2) K/mcL Immature Plt Fraction 9.5 H (1.1-6.1) % PT 10.5 (9.4-12.1) Seconds INR 1.0 APTT 31.3 (26.0-36.0) Seconds Sodium 138 (136-145) mEq/L Potassium 3.7 (3.5-4.5) mEq/L Chloride 99 (98-109) mEq/L Carbon Dioxide 31 H (19-29) mEq/L BUN 16 (7-20) mg/dL Creatinine 1.10 (0.57-1.11) mg/dL Est GFR ( Amer) 57 L (> 60) Est GFR (Non-Af Amer) 47 L (> 60) BUN/Creatinine Ratio 15 (6-26) Glucose 100 H (70-99) mg/dL Calculated Osmolality 287 (280-300) Calcium 10.5 (8.6-10.8) mg/dL Troponin I (0-0.03) ng/mL 03/28/17 Range/Units 21:45 WBC (4.3-11.1) K/mcL RBC (3.82-4.97) M/mcL Hgb (11.5-15.4) g/dL Hct (35.3-44.9) % MCV (83.0-100.0) fL MCH (28.0-33.3) pg MCHC (31.6-35.5) g/dL RDW (11.5-14.5) % Plt Count (140-400) K/mcL MPV (9.4-12.4) fL Immature Gran % (0-4) % Seg Neutrophils % % Lymphocytes % % Monocytes % % Eosinophils % % Basophils % % Neutrophils # (1.6-8.9) K/mcL Lymphocytes # (0.6-4.6) K/mcL Monocytes # (0.0-1.3) K/mcL Eosinophils # (0.0-0.6) K/mcL Basophils # (0.0-0.2) K/mcL Immature Plt Fraction (1.1-6.1) % PT (9.4-12.1) Seconds INR APTT (26.0-36.0) Seconds Sodium (136-145) mEq/L Potassium (3.5-4.5) mEq/L Chloride (98-109) mEq/L Carbon Dioxide (19-29) mEq/L BUN (7-20) mg/dL Creatinine (0.57-1.11) mg/dL Est GFR ( Amer) (> 60) Est GFR (Non-Af Amer) (> 60) BUN/Creatinine Ratio (6-26) Glucose (70-99) mg/dL Calculated Osmolality (280-300) Calcium (8.6-10.8) mg/dL Troponin I 0.00 (0-0.03) ng/mL - Radiology Data Radiology results reviewed: Yes I reviewed the patient's radiology results. Chest X-Ray 03/28/17 19:57 IMPRESSION: No acute process. Stable cardiomegaly D/ / Dave Ashley MD / Dave Ashley MD Interpreting Provider: Dave Ashley MD - EKG Data EKG attestation: Yes I reviewed and interpreted this EKG. EKG shows normal: sinus rhythm Rate: normal (73 bpm ND 141 QRS [address] segment elevations, mild T- wave flattening in the precordial leads) When compared to previous EKG there are: no significant changes, previous EKG unavailable - Core Measures AMI Core Measures Followed: Yes Heart Score - Score History: Moderately Suspicious EKG: Non Specific repolarisation Disturbance Age: Greater than 65 Risk Factors: Equal/Greater than 3 risk factor or history of atherosclerotic disease Troponin: Less than normal limit HEART Score Total: 6 Attestation Statement - Attestation Attestation: IHernandez MD, personally evaluated this patient and discussed their management with the resident physician. I reviewed the resident's note and agree with the documented findings, medical decision making, and plan of care. 86-year-old female presents to the emergency department with a complaint of left -sided chest pain for one week prior to arrival. She states the pain is there just about all the time. The pain is worse with exertion such as walking or the pain is improved with rest. Pain is in the left lateral upper chest and radiates up into the left shoulder and the left side of the neck. She does admit to some shortness of breath and diaphoresis associated with the pain. No nausea or vomiting. Patient states that she had fluid taken off her heart and lungs in the past. She denies CO. On examination patient is a well-developed obese elderly female in no acute distress. She is alert and oriented 3. There is no cyanosis or diaphoresis. Chest is nontender to palpation. Breath sounds are clear and equal bilaterally. Heart regular rate and rhythm. Abdomen soft and nontender with normal bowel sounds. No pedal edema. No acute changes on EKG. Chest x-ray negative. Labs reviewed. Troponin 0.00. The hospitalist, Dr. Matta, was consulted and accepted admission of the patient.
[2017-03-28 21:53] LABS: Basophils # 0.1 K/mcL (0.0-0.2); Basophils % 0.6 %; Eosinophils # 0.2 K/mcL (0.0-0.6); Eosinophils % 1.9 %; Hematocrit 37.4 % (35.3-44.9); Hemoglobin 12.6 g/dL (11.5-15.4); Immature Granulocytes % 0.3 % (0-4); Immature Platelets 9.5 % (1.1-6.1); Lymphocytes # 2.2 K/mcL (0.6-4.6); Lymphocytes % 24.3 %; Mean Corpuscular HGB Conc 33.7 g/dL (31.6-35.5); Mean Corpuscular Hemoglobin 31.2 pg (28.0-33.3); Mean Corpuscular Volume 92.6 fL (83.0-100.0); Mean Platelet Volume 10.9 fL (9.4-12.4); Monocytes # 0.8 K/mcL (0.0-1.3); Monocytes % 9.1 %; Neutrophils # 5.7 K/mcL (1.6-8.9); Platelet Count 189 K/mcL (140-400); Red Blood Count 4.04 M/mcL (3.82-4.97); Segmented Neutrophils % 63.8 %
[2017-03-28 21:59] LABS: Prothrombin Time 10.5 Seconds (9.4-12.1)
[2017-03-28 22:01] LABS: Activated Partial Thrombo Time 31.3 Seconds (26.0-36.0)
[2017-03-28 22:05] LABS: Calcium 10.5 mg/dL (8.6-10.8); Potassium 3.7 mEq/L (3.5-4.5)
[2017-03-29] MEDS ORDERED: Acetaminophen 325 MG TABLET PO PRN (00:17)
[2017-03-29] MEDS ORDERED: Ondansetron 4 MG/2 ML VIAL IVP PRN (00:17)
[2017-03-29] MEDS ORDERED: Naloxone 0.4 MG/ML INJ IVP PRN (00:17)
[2017-03-29] MEDS ORDERED: Nitroglycerin 0.4 MG TAB.SUBL SL PRN (00:18)
[2017-03-29] MEDS ORDERED: NON-FORMULARY MEDICATION 1 EACH EACH (Insulin Glargine,Hum.Rec.Anlog [Lantus Solostar] 4 U SQ SCH (00:30)
--- NOTE | 2017-03-29 00:30 | Internal Med History&Physical ---
<Bridger Torre - Last Filed: 03/29/17 00:50> Date of Encounter: 03/29/17 Time of Encounter: 00:01 Assessment and Plan (1) Chest pain Current visit: Yes Status: Acute Assess: Patient presents with chief complaint of chest pain for approximately 1 week which is become worse and is increased with exertion. Plan: Trend troponins x2 EV echocardiogram Nuclear Pharm stress test ordered Continuous cardiac telemetry ordered Nitroglycerin ordered Qualifiers: Chest pain type: other chest pain Qualified Code(s): R07.89 - Other chest pain; R07.8 - Other chest pain (2) SOB (shortness of breath) Current visit: Yes Status: Acute Assess: Patient presents with shortness of breath which occurs with chest pain for the past week. SOB becomes worse with exertion. Plan: Supplemental O2 ordered with titration if SpO2 <92% Continuous SpO2 monitoring Falls precautions/[id number] (3) Hyperlipidemia Current visit: Yes Status: Chronic Assess: Patient presents with history of chronic hyperlipidemia. Plan: Lipitor 20 mg HS ordered Qualifiers: Hyperlipidemia type: unspecified Qualified Code(s): E78.5 - Hyperlipidemia , unspecified (4) Anxiety Current visit: Yes Status: Chronic Assess: Patient presents with history of chronic anxiety for which she reports seeing a psychiatrist. Plan: Continue patient's Xanax (5) Diabetes Current visit: Yes Status: Chronic Assess: Presents with history of chronic diabetes. Plan: Blood glucose monitoring ACHS Continue patient's hyperglycemia medication Qualifiers: Diabetes mellitus type: type 2 Diabetes mellitus complication status: with other specified complication Diabetes mellitus jail insulin use: with jail use Qualified Code(s): E11.69 - Type 2 diabetes mellitus with other specified complication; Z79.4 - intermediate designer (current) use of insulin (6) HTN (hypertension) Current visit: Yes Status: Chronic Assess: Patient presents with history of chronic hypertension. Plan: Continue Lopressor Continue Cozaar Monitor patient patient's vital signs Qualifiers: Hypertension type: essential hypertension Qualified Code(s): I10 - Essential (primary) hypertension (7) DVT prophylaxis Current visit: Yes Status: Acute Assess: Patient be placed on DVT prophylaxis due to admission protocol and current status. Plan: Heparin 5,000 units SQ Q8 Internal Medicine - H&P: HPI Chief complaint: CP Admitted From: Emergency Dept Plans for Post Hospital Care: Home History of present illness: Mrs. Phillips is a 86 year old female who presents from the ED with chief complaint of chest pain which has been going on for approximately 1 week. Patient states chest pain becomes worse with exertion as well as shortness of breath andpain radiates to her left arm and shoulder. Mrs. Phillips reports that she has not had previous workup for ischemia and her last known echocardiogram was in 2014. She also states she takes 81 mg of aspirin daily. Patient denies fever, chills, recent illness, productive cough, weight changes, changes in bowel or urinary habits, generalized weakness, abdominal pain, nausea, vomiting , syncope, and presyncope. Patient has a known history of hypertension, diabetes, hyperlipidemia, diverticulosis, and GERD. Patient also states she has pain in her left knee related to knee surgery for which she received a shot one month ago by her provider. Upon admission the ED, patient's pulse was 68, respiratory rate was 18, and BP 176/90. Patient states chest pain is currently subsided. Patient is at moderate risk for cardiac decline to 2 risk factors of hypertension, diabetes, and hyperlipidemia and will be placed as observation status with orders for EV echocardiogram, nuclear stress test, trending troponins 2, continuous telemetry, supplemental O2 with titration if SPO2 less than 92%, and falls precautions. Patient to be monitored closely. Time spent with patient greater than 40 minutes. Past Med Surg Social Fam HX - Past Medical History Source: patient Medical history: diabetes, hyperlipidemia, hypertension Psychiatric history: anxiety - Past Surgical History Surgical History: breast surgery (Keloids removed from left breast), knee replacement (Left knee x2) - Social History Smoking Status: Never smoker Smokeless Tobacco Status: No Alcohol use: none Drug use: none Occupational status: retired Current living situation: Home - Independent Activity Level: Uses cane/walker Recent Out of Country Travel Within the Last 8 Weeks: No Exposure or Possible Exposure to Illness During Travel: No - Family History Mother Race: Family Member Ethnicity: Non- Living Status: Age at : 69 Hx Family Endocrine Disorder: Yes (DIABETES MELLITUS.) Father Race: Family Member Ethnicity: Non- Living Status: Age at : 95 Hx Family Cardiac Disorders: Yes (HTN) Hx Family Neurologic Disorders: Yes (Dementia) Brother Race: Family Member Ethnicity: Non- Living Status: Age at : 87 Cause of : Cancer Hx Family Cancer: Yes Sister Race: Family Member Ethnicity: Non- Living Status: Age at : 70 Cause of : DM Hx Family Cardiac Disorders: Yes (HD) Hx Family Endocrine Disorder: Yes (DM) Internal Medicine - H&P: Meds Aspirin 81 mg PO DAILY 05/22/15 [History] ALPRAZolam [Xanax 0.5 MG Tablet] 0.5 mg PO QID 06/06/15 [History] Calcium Carbonate/Vitamin D3 [Calcium 500-Vit D3 400 Tablet] 1 each PO BID 06/06 [History] Citalopram Hydrobromide [Citalopram HBr] 20 mg PO HS 06/06/15 [History] Multivit-Min/FA/Lycopen/Lutein [Centrum Silver Tablet] 1 each PO DAILY 06/06/15 [History] Potassium Chloride [Klor-Con Sprinkle] 5 meq PO BID 06/06/15 [History] hydrOXYzine HCl [Hydroxyzine HCl] 25 mg PO TID PRN 06/06/15 [History] Losartan [Cozaar] 50 mg PO BID 03/06/16 [History] Metoprolol [Lopressor] 75 mg PO BID 03/06/16 [History] hydroCHLOROthiazide [Hydrochlorothiazide] 25 mg PO DAILY 03/06/16 [History] Insulin Glargine,Hum.rec.anlog [Lantus Solostar] 4 unit SQ HS 12/30/16 [History] Pantoprazole Sodium [Protonix] 40 mg PO DAILY 12/31/16 [History] Allergies Iodinated Contrast- Oral and IV Dye [Iodinated Contrast Media - IV Dye] Allergy (Verified 12/31/16 08:26) Hives All Systems PM: A 10-system review of systems was performed and is negative for pertinent findings except as documented above in the HPI. - Constitutional Constitutional: no chills, no fever(s), no night sweats - EENT Eyes: no change in vision, no discharge, no pain, no photophobia Ears: no ear discharge, no ear pain, no tinnitus Nose, mouth and throat: no dysphagia, no nasal discharge, no neck pain, no sore throat - Breasts Breasts: as per HPI - Cardiovascular Cardiovascular ROS IM: as per HPI, chest pain, dyspnea on exertion - Respiratory Respiratory: as per HPI, dyspnea on exertion - Gastrointestinal Gastrointestinal: as per HPI, abdominal pain, no diarrhea, no hematemesis, no hematochezia, no melena, no nausea, no vomiting - Genitourinary Genitourinary: no change in urinary stream, no dysuria, no flank pain, no hematuria Menstruation: as per HPI, post menopausal - Musculoskeletal Musculoskeletal ROS IM: as per HPI, other (Pain in left knee) - Integumentary Integumentary IM: no rash, no unusual bruising - Neurological Neurological ROS: no confusion, no convulsions, no focal weakness, no numbness, no tingling, no tremor(s) - Psychiatric Psychiatric: as per HPI - Endocrine Endocrine IM: as per HPI - Hematologic/Lymphatic Hematologic/Lymphatic: no easy bruising - Allergic/Immunologic Allergic/Immunologic: as per HPI - Constitutional Vitals: Temp Pulse Resp BP Pulse Ox 98.2 F 68 20 178/89 98 03/28/17 18:50 03/28/17 20:40 03/28/17 23:28 03/28/17 23:28 03/28/17 20:40 General appearance: Present: cooperative, A&O X 3, pleasant, no acute distress, obese, answers questions appropriately - Head Head exam: Present: atraumatic, normocephalic - Eye Eye exam: Present: PERRL, conjuntiva pink, sclera anicteric Pupils: Present: PERRL - ENT ENT exam: Present: normal exam, normal external ear exam - Neck Neck exam general surgery: Present: supple, trachea midline. Absent: lymphadenopathy - Respiratory Respiratory exam: Present: CTAB. Absent: accessory muscle use, rales, rhonchi, wheezes - Cardiovascular Cardiovascular exam: Present: RRR, +S1, +S2. Absent: diastolic murmur, gallop, rubs, systolic murmur - GI/Abdominal GI/Abdominal exam: Present: soft, tenderness - Rectal Rectal exam: Present: deferred - Additional comments: exam deferred. - Extremities Exam Extremities exam: Present: warm, radial pulses palpable and symetrical. Absent : calf tenderness, cyanotic, pedal edema - Back Exam Back exam: Present: normal inspection - Neurological Exam Neurological exam: Present: CN II-XII intact, oriented X3, no focal deficits. Absent: pronater drift, facial droop, speech deficit - Psychiatric Psychiatric exam: Present: normal affect, normal mood - Skin Skin exam: Present: dry, intact Internal Med - H&P Results - Labs CBC & Chem 7: 03/28/17 21:45 03/28/17 21:45 - EKG Data EKG shows normal: sinus rhythm Rate: normal - EKG Data Prior EKG available for review: no - Diagnostic Studies Chest x-ray Additional comments: Impressions Chest X-Ray 03/28/17 19:57 IMPRESSION: No acute process. Stable cardiomegaly D/ / Dave Ashley MD / Dave Ashley MD Interpreting Provider: Dave Ashley MD <Hilario Cleveland - Last Filed: 03/29/17 01:28> Date of Encounter: 03/29/17 Internal Medicine - H&P: HPI History of present illness: Ms. Phillips is a 86 year old female Past Med Surg Social Fam HX - Family History Mother Race: Family Member Ethnicity: Non- Living Status: Age at : 69 Hx Family Endocrine Disorder: Yes (DIABETES MELLITUS.) Father Race: Family Member Ethnicity: Non- Living Status: Age at : 95 Hx Family Cardiac Disorders: Yes (HTN) Hx Family Neurologic Disorders: Yes (Dementia) Brother Race: Family Member Ethnicity: Non- Living Status: Age at : 87 Cause of : Cancer Hx Family Cancer: Yes Sister Race: Family Member Ethnicity: Non- Living Status: Age at : 70 Cause of : DM Hx Family Cardiac Disorders: Yes (HD) Hx Family Endocrine Disorder: Yes (DM) Father Daughter History Unknown: Yes Living Status: All Systems PM: A 10-system review of systems was performed and is negative for pertinent findings except as documented above in the HPI. - Constitutional Vitals: Temp Pulse Resp BP Pulse Ox 97.9 F 68 16 159/91 98 03/29/17 00:28 03/29/17 00:28 03/29/17 00:28 03/29/17 00:28 03/29/17 00:28 Internal Med - H&P Results - Labs CBC & Chem 7: 03/28/17 21:45 03/28/17 21:45 - Attending Attestation I examined this patient and my medical decision-making was reviewed with Mr. Torre. I agree with the documented findings, disposition and treatment plan as described except to the extent set forth below. 85-year-old female who presented due to chest pain and left arm pain to the emergency department. This is associated with shortness of breath. On exam, reproducible tenderness on the left side of the chest. Clear breath sounds bilaterally. First and second heart sounds present. EKG personally reviewed-sinus rhythm. Nonspecific ST-T changes. Patient is currently on beta jane at home. Labs reviewed. Patient will be placed under observation. Cycle troponins. If they are negative, pharmacological stress test. Further management to depend on the results of the stress test. Aspirin, statin and beta jane will be continued. BENITO Samaniego
[2017-03-29] MEDS: ALPRAZolam 0.5 MG TABLET PO PRN ×4 (01:03→22:32)
[2017-03-29] MEDS: Insulin DETEMIR 100 UNIT/ML X5UNITS SQ SCH ×2 (01:03→22:33)
[2017-03-29] MEDS: *HR* Heparin 5,000 UNIT/ML VIAL SQ SCH ×3 (05:50→22:40)
[2017-03-29] MEDS ORDERED: Regadenoson 0.4 MG/5 ML SYRINGE IVP ONE (06:19)
[2017-03-29] MEDS: hydroCHLOROthiazide 25 MG TABLET PO SCH (10:01)
[2017-03-29] MEDS: Aspirin 81 MG TAB.CHEW PO SCH (10:01)
--- NOTE | 2017-03-29 12:25 | Nuclear Medicine Stress Report ---
Regadenoson Nuclear Stress Name: Layne Phillips Date of Study: 03/29/2017 Date: 1930 Ht: 64.0 in Medical Record#: [id number] Age: 86 Wt: 213.0 lb Gender: Female Order #: [id number] Location: [facility] Room: [facility] Supervising Provider: Efe Carballo CNP Reading Physician: Luis E Ricci DO, KP CHRISTIANSON FASNC Ordering Physician: Bianca Gallegos CNP Primary Care Physician: Luis Vargas DO Stress Technologist: Minh Kuo CRT Superintendent Terminal: Bentley Evans Indications: Chest Pain Impression: Pharmacologic stress ECG is non diagnostic for ischemia due to baseline non-specific ST and T changes. Gated EF = 74%. Perfusion imaging was negative for ischemia or infarct. History: Hypertension Diabetes Hypercholesteremia Stress Test Summary: Stress Test Type: Pharmacologic Regadenoson 0.4mg/5ml given IV Baseline Information: Initial Heart Rate: 73 Blood Pressure: 158/74 Stress Information: Test Terminated Due to (primary): As per protocol Maximum Blood Pressure: 140/70 Maximum Heart Rate: 93 Percent Maximum Heart Rate Achieved: 69 METS Reached: 1 Symptoms: No chest symptoms Nuclear Summary: SPECT myocardial perfusion imaging using Tc99m Sestamibi given intravenously was performed at rest and following cardiac stress testing. The resting images were obtained following initial dose of 11.5 mCi. Following stress an additional dose of 31.8 mCi was given at peak exercise or 30 seconds post regadenoson infusion. Medication Given: Time Medication Dose Units Route Findings: Stress Note * Resting ECG demonstrated normal sinus rhythm baseline ST-T changes. * No baseline arrhythmias were noted. * Pharmacologic stress ECG is non diagnostic for ischemia due to baseline non-specific ST and T changes. * No arrhythmias were noted during stress. * Patient had no chest pain during stress. Hemodynamic responses * Normal hemodynamic responses to pharmacologic stress. Study Quality * Study quality is average. Gated EF % * Gated EF = 74%. Left Ventricle * The left ventricle is not dilated. * LVEDV = 69 mL. NORMALS * Normal wall motion. * Normal Segmental Perfusion in rest. * Normal segmental perfusion in stress. TID * No evidence of transient ischemic dilatation. TID ratio * TID ratio = 1.12. Lung Uptake * There is no evidence of increase lung uptake. Updated by Luis E Ricci DO, FACPio, KP, ANNA on 03/29/2017 12:17:56 PM electronically signed on 03/29/2017 12:19:40 PM with status of Final
--- NOTE | 2017-03-29 14:50 | Internal Med Progress Note ---
Date of Encounter: 03/29/17 Time of Encounter: 09:50 - Assessment and plan (1) Chest pain Current Visit: Yes Status: Acute Assessment and plan: Patient reports shortness of breath at rest for 2 months, she also reports that she is short of breath during examination. She reports chest pain 1 month intermittently, usually lasts at least an hour or more. She describes it as dull, no nausea, no vomiting, sometimes diaphoretic. The pain is located in the left axillary area and radiates to the left upper chest. She says it does happen daily. She said there is no pattern. The pain does not become worse with movement or shortness of breath. Troponins are negative 2. Chest x-ray was negative for acute process. Patient had stress test today with a gated EF is 74%, negative for ischemia or infarct. Patient's lungs are clear to auscultation but diminished. Pain does not increase with deep inspiration. We will continue to monitor patient overnight for changes. Continue telemetry Pain control At this time echocardiogram has been completed, however is not resulted. Chest X-Ray 03/28/17 19:57 IMPRESSION: No acute process. Stable cardiomegaly D/ / Dave Ashley MD / Dave Ashley MD Interpreting Provider: Dave Ashley MD Qualifiers: Chest pain type: other chest pain Qualified Code(s): R07.89 - Other chest pain; R07.8 - Other chest pain (2) SOB (shortness of breath) Current Visit: Yes Status: Acute Assessment and plan: Patient reports shortness of breath at rest 2 months. She says that she was currently short of breath during examination. She did not appear to be short of breath, she spoke easily in full sentences, she is not requiring supplemental oxygen. Her lungs are clear but diminished. There is no rhonchi, wheezing, rales. There is no chest wall tenderness. Oxygen as needed, continuous pulse ox. (3) CKD (chronic kidney disease) stage 3, GFR 30-59 ml/min Current Visit: No Status: Chronic Assessment and plan: GFR is 57. Creatinine is within normal limits. We will continue to monitor labs and avoid nephrotoxins. (4) HTN (hypertension) Current Visit: Yes Status: Chronic Assessment and plan: Well-controlled in inpatient setting. Patient takes thiazide diuretic, ARB, beta jane. Continue. Qualifiers: Hypertension type: essential hypertension Qualified Code(s): I10 - Essential (primary) hypertension (5) Hyperlipidemia Current Visit: Yes Status: Chronic Assessment and plan: Chronic. Continue home medications. Qualifiers: Hyperlipidemia type: unspecified Qualified Code(s): E78.5 - Hyperlipidemia , unspecified (6) DVT prophylaxis Current Visit: Yes Status: Acute Assessment and plan: Heparin subcutaneous daily - Time Spent With Patient less than 15 minutes - Subjective Interval history: Patient is an exceptionally pleasant 86-year-old female. She is alert and oriented, speech is clear. I saw her she reports that she had a headache from her stress test. She refused any kind of medication. She says she does not like to take any kind of medication at all, let alone pain medication. She reports shortness of breath at rest for the last 2 months. She states that she is currently short of breath during the exam. She appears to be in no distress and is speaking easily, she is not requiring supplemental oxygen. She also reports chest pain for about a month that is dull and nonradiating. There is no nausea, vomiting, sometimes she gets diaphoretic, and her baseline shortness of breath does become worse. The pain is located left midaxillary area with radiation to left upper chest. She says that it happens daily and lasts one or more hours. Patient lives in assisted living, she walks with a pronged cane. We have put in PT OT consultation. Patient reports that she has had several surgeries to her left knee and she has never been the same. Patient will stay overnight for continued monitoring. Her stress test was negative, at this time echocardiogram is reportedly done, however, it is not resulted. - Constitutional Vitals: Temp Pulse Resp BP Pulse Ox 97.5 F L 61 15 165/75 100 03/29/17 11:07 03/29/17 11:07 03/29/17 11:07 03/29/17 11:07 03/29/17 11:07 General appearance: Present: cooperative, A&O X 3, pleasant, no acute distress, obese, answers questions appropriately - Head Head exam: Present: normal inspection - Eye Eye exam: Present: normal appearance, conjuntiva pink - ENT ENT exam: Present: mucous membranes moist, normal exam - Neck Neck exam general surgery: Present: normal inspection. Absent: lymphadenopathy , tenderness - Respiratory Respiratory exam: Present: decreased breath sounds, CTAB. Absent: chest wall tenderness, rales, respiratory distress, rhonchi, wheezes, tachypnea - Cardiovascular Cardiovascular exam: Present: RRR, +S1, +S2. Absent: bradycardia, clicks, diastolic murmur, gallop, systolic murmur, tachycardia - Expanded Cardiovascular Exam Peripheral pulses: 1+: Dorsalis Pedis (L) PM, Dorsalis Pedis (R) PM - GI/Abdominal GI/Abdominal exam: Present: normal bowel sounds, soft. Absent: distended, hepatomegaly, tenderness - Extremities Exam Extremities exam: Present: warm, radial pulses palpable and symetrical. Absent : tenderness - Neurological Exam Neurological exam: Present: alert, oriented X3. Absent: facial droop, speech deficit - Skin Skin exam: Present: dry, normal color, rash, warm Internal Medicine: Result - Labs CBC & Chem 7: 03/28/17 21:45 03/28/17 21:45 Labs: Cardiac Enzymes 03/29/17 03/29/17 Range/Units 01:26 06:47 Troponin I 0.01 0.01 (0-0.03) ng/mL - ABG Interpretation ABG results: PT/INR, D-dimer PT 10.5 Seconds (9.4-12.1) 03/28/17 21:45 Consult Discharge Plan - Plan Referrals: Luis Vargas DO [Primary Care Provider] -
--- NOTE | 2017-03-29 15:41 | Electrocardiograph Report ---
[place] [id number] Test Date: 2017-03-28 Pat Name: Layne Phillips Department: 103 Room: 3B22 Gender: F Skein Winding Operator: ASHLEY : 1930 Requested By: Hernandez Carrera Order Number: [id number] Reading MD: Татьяна Amaya Measurements Intervals [place] Rate: 73 P: 67 TN: 141 QRS: 30 QRSD: 106 T: 35 QT: 400 QTc: 426 Interpretive Statements SINUS RHYTHM Electronically Signed On 03-29-2017 15:40:28 EDT by Татьяна Amaya
[2017-03-30] MEDS: *HR* Heparin 5,000 UNIT/ML VIAL SQ SCH (06:10)
[2017-03-30 08:11] LABS: BUN/Creatinine Ratio 13 (6-26); Blood Urea Nitrogen 13 mg/dL (7-20); Calcium 9.5 mg/dL (8.6-10.8); Carbon Dioxide 29 mEq/L (19-29); Chloride 100 mEq/L (98-109); Glucose 110 mg/dL (70-99); Osmolality,Calculated 287 (280-300); Potassium 3.6 mEq/L (3.5-4.5); Sodium 138 mEq/L (136-145); eGFR For African Americans > 60 (> 60); eGFR For Non-African Americans 52 (> 60)
[2017-03-30 08:15] LABS: Basophils # 0.1 K/mcL (0.0-0.2); Basophils % 0.8 %; Eosinophils # 0.2 K/mcL (0.0-0.6); Eosinophils % 2.8 %; Hematocrit 36.5 % (35.3-44.9); Hemoglobin 12.3 g/dL (11.5-15.4); Immature Granulocytes % 0.3 % (0-4); Lymphocytes # 1.5 K/mcL (0.6-4.6); Lymphocytes % 20.1 %; Mean Corpuscular HGB Conc 33.7 g/dL (31.6-35.5); Mean Corpuscular Hemoglobin 31.3 pg (28.0-33.3); Mean Corpuscular Volume 92.9 fL (83.0-100.0); Mean Platelet Volume 11.2 fL (9.4-12.4); Monocytes # 0.8 K/mcL (0.0-1.3); Monocytes % 11.4 %; Neutrophils # 4.8 K/mcL (1.6-8.9); Platelet Count 172 K/mcL (140-400); Red Blood Count 3.93 M/mcL (3.82-4.97); Red Cell Distribution Width 12.2 % (11.5-14.5); Segmented Neutrophils % 64.6 %
[2017-03-30] MEDS: Aspirin 81 MG TAB.CHEW PO SCH (09:02)
[2017-03-30] MEDS: hydroCHLOROthiazide 25 MG TABLET PO SCH (09:03)
[2017-03-30] MEDS: ALPRAZolam 0.5 MG TABLET PO PRN (09:03)
[2017-03-30 10:38] VITALS: BP 110/71
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
== END 2017-03-30 16:11 | disposition home or self-care (01) ==
LOC: 3BNU 18:48 → EMEROO 18:48 → 3BNU 23:48
PROVIDERS: ADMIT Internal Medicine Sleep Medicine; ATTEND Nurse Practitioner Family

== ENCOUNTER 2020-05-05 11:09 | Inpatient (IN) ==
[2020-05-05 12:04] LABS: Basophils % 0.4 %; Eosinophils # 0.1 K/mcL (0.0-0.6); Eosinophils % 1.8 %; Hematocrit 37.8 % (35.3-44.9); Hemoglobin 11.9 g/dL (11.5-15.4); Immature Granulocytes % 0.4 % (0-4); Lymphocytes # 1.2 K/mcL (0.6-4.6); Lymphocytes % 17.8 %; Mean Corpuscular HGB Conc 31.5 g/dL (31.6-35.5); Mean Corpuscular Hemoglobin 30.8 pg (28.0-33.3); Mean Corpuscular Volume 97.9 fL (83.0-100.0); Mean Platelet Volume 12.5 fL (9.4-12.4); Monocytes # 0.5 K/mcL (0.0-1.3); Monocytes % 7.4 %; Neutrophils # 4.9 K/mcL (1.6-8.9); Platelet Count 148 K/mcL (140-400); Red Blood Count 3.86 M/mcL (3.82-4.97); Red Cell Distribution Width 12.7 % (11.5-14.5); Segmented Neutrophils % 72.2 %; White Blood Count 6.8 K/mcL (4.3-11.1)
[2020-05-05 12:24] LABS: BUN/Creatinine Ratio 22 (6-26); Blood Urea Nitrogen 22 mg/dL (8-23); Calcium 10.2 mg/dL (8.6-10.3); Carbon Dioxide 31 mEq/L (23-29); Chloride 99 mEq/L (98-107); Glucose 137 mg/dL (70-105); Osmolality,Calculated 291 (280-300); Potassium 3.6 mEq/L (3.5-5.1); Sodium 138 mEq/L (136-145); Troponin I < 0.03 ng/mL (< 0.04); eGFR For African Americans > 60 (> 60); eGFR For Non-African Americans 53 (> 60)
[2020-05-05] MEDS ORDERED: Ondansetron 4 MG/2 ML VIAL IVP PRN (16:39)
[2020-05-05] MEDS ORDERED: Naloxone 0.4 MG/ML INJ IVP PRN (16:39)
[2020-05-05] MEDS ORDERED: Dextrose Gel 15 GM/37.5 ML TUBE PO PRN ×2 (18:17)
[2020-05-05] MEDS ORDERED: D5% in Water 1,000 ML IVC PRN (18:17)
[2020-05-05] MEDS ORDERED: *HR* Dextrose 50 % in Water (Vial) 50 ML VIAL IVP PRN (18:17)
[2020-05-05] MEDS ORDERED: Famotidine 20 MG TABLET PO PRN (18:29)
[2020-05-05] MEDS ORDERED: hydrOXYzine pamoate 25 MG CAPSULE PO PRN (18:29)
[2020-05-05] MEDS ORDERED: ALPRAZolam 1 MG TABLET PO PRN (18:34)
[2020-05-05] MEDS ORDERED: Sennosides 8.6 MG TABLET PO SCH (21:00)
[2020-05-05] MEDS ORDERED: Insulin DETEMIR 100 UNIT/ML X5UNITS SQ SCH (21:00)
[2020-05-06 01:26] LABS: Basophils % 0.5 %; Eosinophils # 0.2 K/mcL (0.0-0.6); Hematocrit 40.7 % (35.3-44.9); Hemoglobin 12.8 g/dL (11.5-15.4); Immature Granulocytes % 0.4 % (0-4); Lymphocytes # 1.5 K/mcL (0.6-4.6); Lymphocytes % 19.9 %; Mean Corpuscular HGB Conc 31.4 g/dL (31.6-35.5); Mean Corpuscular Volume 98.5 fL (83.0-100.0); Mean Platelet Volume 11.3 fL (9.4-12.4); Monocytes # 0.6 K/mcL (0.0-1.3); Monocytes % 8.5 %; Neutrophils # 5.1 K/mcL (1.6-8.9); Platelet Count 172 K/mcL (140-400); Red Blood Count 4.13 M/mcL (3.82-4.97); Red Cell Distribution Width 12.5 % (11.5-14.5); Segmented Neutrophils % 68.7 %; White Blood Count 7.4 K/mcL (4.3-11.1)
[2020-05-06 01:43] LABS: BUN/Creatinine Ratio 20 (6-26); Blood Urea Nitrogen 17 mg/dL (8-23); Calcium 10.2 mg/dL (8.6-10.3); Carbon Dioxide 31 mEq/L (23-29); Chloride 100 mEq/L (98-107); Glucose 109 mg/dL (70-105); Magnesium 1.8 mg/dL (1.6-2.6); Osmolality,Calculated 292 (280-300); Potassium 3.4 mEq/L (3.5-5.1); Sodium 140 mEq/L (136-145); eGFR For African Americans > 60 (> 60); eGFR For Non-African Americans > 60 (> 60)
[2020-05-06] MEDS: Insulin LISPRO 300 UNITS/3 ML VIAL SQ SCH ×3 (08:48→16:56)
[2020-05-06] MEDS ORDERED: Perflutren Lipid Microsphere 1.3 ML in 0.9 % Sodium Chloride 8.7 ML IVP PRN (08:56)
[2020-05-06] MEDS ORDERED: Loratadine 10 MG TABLET PO SCH (09:00)
[2020-05-06] MEDS ORDERED: amLODIPine 5 MG TABLET PO SCH (09:00)
[2020-05-06] MEDS ORDERED: Anastrozole 1 MG TABLET PO SCH (09:00)
[2020-05-06] MEDS ORDERED: Metoprolol 100 MG TABLET PO SCH (09:00)
[2020-05-06] MEDS ORDERED: polyethylene glycoL 3350 17 GM POWD.PACK PO SCH (09:00)
[2020-05-06] MEDS ORDERED: hydroCHLOROthiazide 25 MG TABLET PO SCH (09:00)
[2020-05-06 11:35] VITALS: BP 127/71
== END 2020-05-06 19:08 | disposition home or self-care (01) | DRG 311 ==
LOC: EMEROOARM 11:09 → 3ANU 11:09 → SUATTDRO 16:12 → 3ANU 17:02
PROVIDERS: ADMIT Family Medicine; ATTEND Internal Medicine